=== PATIENT | male | born 1935 | race Caucasian/White ===

== ENCOUNTER 2016-11-17 14:00 | Outpatient (CLI) | payer OTHER ==
[~2016-11-17 14:00] MED LIST: ASPIRIN EC81 MG; METOPROLOL TART25 MG PO; PERCOCET1 TA2 PO
--- NOTE | 2016-11-17 14:50 | DIAGNOSTIC IMAGING REPORT ---
PROCEDURE: US BILATERAL CAROTID DOPPLER INDICATION: VISION CHANGES TECHNIQUE: Color Doppler duplex imaging of the carotid and vertebral vessels. COMPARISON: None. FINDINGS: Minimal plaque bilaterally Right carotid system: No significant stenosis visualized. The waveforms are normal. Left carotid system: No significant stenosis visualized. The waveforms are normal. Vertebral System: Antegrade vertebral artery flow bilaterally. Right common carotid artery peak systolic velocity 60.5 cm/second. Right internal carotid artery peak systolic velocity 106.9 cm/second. Right external carotid artery peak systolic velocity 132.3 cm/second. Right eidflhjd-fo-jfzvhr carotid artery ratio 2.3 Right vertebral artery peak systolic velocity 41.7 cm/second. Left common carotid artery peak systolic velocity 74.6 cm/second. Left internal carotid artery peak systolic velocity 94.8 cm/second. Left external carotid artery peak systolic velocity 121.3 cm/second. Left ektwiyxk-ba-yqsifz carotid artery ratio 1.9 Left vertebral artery peak systolic velocity 45.9 cm/second. IMPRESSION: 1. No hemodynamically significant stenosis in either carotid system. 2. Antegrade vertebral artery flow bilaterally. Velocity criteria are extrapolated from diameter data as defined by the Society of Radiologists in Ultrasound Consensus Conference, Radiology 2003; 229; 340-346.
--- NOTE | 2016-11-17 14:50 | DIAGNOSTIC IMAGING REPORT ---
PROCEDURE: US BILATERAL CAROTID DOPPLER INDICATION: VISION CHANGES TECHNIQUE: Color Doppler duplex imaging of the carotid and vertebral vessels. COMPARISON: None. FINDINGS: Minimal plaque bilaterally Right carotid system: No significant stenosis visualized. The waveforms are normal. Left carotid system: No significant stenosis visualized. The waveforms are normal. Vertebral System: Antegrade vertebral artery flow bilaterally. Right common carotid artery peak systolic velocity 60.5 cm/second. Right internal carotid artery peak systolic velocity 106.9 cm/second. Right external carotid artery peak systolic velocity 132.3 cm/second. Right lrikzzpz-pn-dwcmpe carotid artery ratio 2.3 Right vertebral artery peak systolic velocity 41.7 cm/second. Left common carotid artery peak systolic velocity 74.6 cm/second. Left internal carotid artery peak systolic velocity 94.8 cm/second. Left external carotid artery peak systolic velocity 121.3 cm/second. Left djdteyuq-yn-xpagyw carotid artery ratio 1.9 Left vertebral artery peak systolic velocity 45.9 cm/second. IMPRESSION: 1. No hemodynamically significant stenosis in either carotid system. 2. Antegrade vertebral artery flow bilaterally. Velocity criteria are extrapolated from diameter data as defined by the Society of Radiologists in Ultrasound Consensus Conference, Radiology 2003; 229; 340-346.
== END 2016-11-17 23:00 ==
LOC: US SRH 14:00
DX: H53.9 Unspecified visual disturbance (principal)